=== PATIENT | male | born 1980 | race Caucasian/White ===

== ENCOUNTER 2021-09-16 03:16 | Emergency (ER) | payer BC, SELFPAY ==
[2021-09-16 03:17] VITALS: BP 137/84; PULSE 79; RESP 16; TEMP 36.6; O2SAT 98; BMI 24.3
[2021-09-16 03:18] VITALS: BP 137/84; PULSE 79; RESP 16; TEMP 36.6; O2SAT 98
--- NOTE | 2021-09-16 04:01 | ED.VIS.GI ---
HPI HPI - GI History of Present Illness Chief Complaint: Diarrhea Narrative Narrative: Patient presented with diarrhea for the last 3 days. He states he just arrived from [place]. He is concerned that drinking the water in [place] might be causing diarrhea. He states he is lactose intolerant but has not had any lactose-containing food or drinks. Patient has not had any water from [place] or streams. He has had no sick contacts. Specifically nobody in his household is sick. He is the only one with diarrhea. Patient has not had any recent antibiotics. He has diffuse crampy abdominal pain. He denies blood or mucus in his stool. He has not had a fever. Patient states that he has been eating a lot of rice and drinking plenty of fluids and he is making urine. PFSH PFSH Medical History no medical history Home Medications ondansetron 4 mg PO Q8H PRN PRN #10 tab 09/16/21 [Rx Last Taken Unknown] Allergy/AdvReac Type Severity Reaction Status Date / Time No Known Allergies Allergy Verified 09/16/21 03:18 Surgical History no surgical history Social History Smoking Status: Never smoker ROS ROS ED Constitutional Constitutional ED: Denies chills or fever(s) ENT ENT ED: Denies rhinorrhea or sore throat Cardiovascular Cardiovascular: Denies chest pain or palpitations Respiratory/Chest Respiratory/Chest: Denies cough or dyspnea Gastrointestinal Gastrointestinal: Reports abdominal pain, diarrhea and nausea; Denies constipation or vomiting Genitourinary Genitourinary ED: Denies dysuria or hematuria Musculoskeletal Musculoskeletal: Denies arthralgias, myalgias or neck pain Integumentary Denies Abrasions or rash Neurologic Neurologic: Denies headache(s) or paresthesias EXAM Physical Exam Const Vital Signs: 09/16/21 03:17 09/16/21 03:18 Temperature 98 F 98 F Temperature Source Oral Oral Pulse Rate 79 79 Respiratory Rate 16 16 Blood Pressure 137/84 H 137/84 H Blood Pressure Mean 101 101 Pulse Ox 98 98 Positive well nourished and well developed General Appearance ED: well developed and NAD; Negative for pallor HEENT Reports moist mucous membranes normocephalic and atraumatic Eyes PERRL and EOMs intact bilaterally General Eye ED: Negative for pale conjunctiva or scleral icterus Resp normal respiratory effort and clear to auscultation bilaterally Cardio regular rate and regular rhythm GI non-distended GI Narrative: No focal area of tenderness. Generalized mild tenderness to palpation. Nonperitoneal. Auscultation: hyperactive bowel sounds Palpation: soft Neuro Sensorium / Orientation: alert, oriented to person, oriented to place and oriented to time Psych mental status grossly normal and thought process normal Skin General Skin Exam: Negative for jaundice or pallor Lesions: no lesions Rashes: no rashes MDM MDM MDM Narrative Medical decision making narrative: Patient presenting with diarrhea for 3 days. He states he has been eating and drinking well and has been making urine. He continues to have diarrhea. He is tried Pepto-Bismol. He has been eating rice and bread to try to make his diarrhea go away. He does state that he had some red sauce the other day but denies any acid reflux type symptoms other than some intermittent nausea. He has no black or bloody stools. He has no recent use of antibiotics. He has no sick contacts and specifically his family is not having any symptoms of this. He has not had a fever. He is lactose intolerant but denies taking anything with lactose in it. He has not had any undercooked meat. Patient's vital signs are normal. His pulse is 79 his blood pressure is 137/84, respirate 16 he is afebrile. Patient counseled that likely this is viral in nature and will pass. Patient states that he has intermittent nausea so I will give him Zofran here. I will provide a prescription so that he can hydrate at home. I do not believe he needs any blood work or imaging clinically. He was given return precautions. Patient able discharge. Impression: 1. Diarrhea likely viral Discharge Plan Triage Chief Complaint: Diarrhea ED Provider: Geoff Gayle Dx/Rx/DC Orders Instructions: ED Diarrhea, Viral (Adult) Prescriptions: New ondansetron 4 mg tablet,disintegrating 4 mg PO Q8H PRN PRN (Reason: Nausea) Qty: 10 RF: 0 Primary Care Provider: NOT,DEFINED Referrals: Bryant Nolen MD [STAFF PHYSICIAN] - As Needed NOT,DEFINED [Primary Care Provider] - Disposition Disposition: Home, Self Care
[2021-09-16] MEDS: Ondansetron ODT 4 MG Tablet PO (04:04)
== END 2021-09-16 04:27 | disposition home or self-care (01) ==
LOC: ED 04:14
PROVIDERS: Emergency Provider Student in an Organized Health Care Education/Training Program
DX: R19.7 Diarrhea, unspecified (principal); R11.0 Nausea; R10.9 Unspecified abdominal pain
CPT/HCPCS: 99283; A4216